=== PATIENT | male | born 1995 | race Asian ===

== ENCOUNTER 2017-01-20 23:14 | Emergency (ER) | payer SELFPAY ==
[~2017-01-20] VITALS: Ht 172.7 cm; Wt 72.2 kg
[2017-01-20 23:15] VITALS: BP 150/100
== END 2017-01-21 00:17 | disposition home or self-care (01) ==
LOC: ED 23:59
DX: R05 Cough (principal)
CPT/HCPCS: 93005; 99283; J7512